=== PATIENT | male | born 1985 | race Caucasian/White ===

== ENCOUNTER 2019-10-24 17:39 | Emergency (ER) | payer OTHER ==
[2019-10-24] MEDS ORDERED: Lorazepam 2 MG/ML VIAL ONE (18:39)
== END 2019-10-24 19:10 | disposition home or self-care (01) ==
LOC: MADERS 17:39
DX: F41.9 Anxiety disorder, unspecified (principal); K92.0 Hematemesis; F17.210 Nicotine dependence, cigarettes, uncomplicated
CPT/HCPCS: 96372; 99284; J2060